=== PATIENT | male | born 2000 | race Hispanic/Latino ===

== ENCOUNTER 2019-09-14 12:58 | Emergency (ER) | payer SELFPAY ==
[2019-09-14 13:11] VITALS: BP 141/71; PULSE 66; RESP 16; TEMP 36.5; O2SAT 100
--- NOTE | 2019-09-14 13:21 | ED.NAVMDI ---
HPI - Nausea/Vomiting/Diarrhea General Chief complaint: Nausea/Vomiting/Diarrhea Stated complaint: vomiting blood Time Seen by Provider: 09/14/19 13:19 Source: patient Mode of arrival: ambulatory Limitations: no limitations History of Present Illness HPI Narrative: A 18 y/o male presents to the ED with c/o N/V/D. Pt states that he has had N/V/D for awhile, but he recently vomited blood on 09/12/19. He notes that he has not vomited since, and he only had the one episode of bloody emesis. Pt adds that he blew his nose and he had blood in the tissue. He reports voice hoarseness that started today, but denies ABD pain. Pt has no other complaints at this time. MD elicited complaint: nausea, vomiting and diarrhea Onset (ago): unknown Associated nausea: Yes Associated abdominal pain: No Location of pain: none Associated symptoms: other (sinus congestion, voice hoarseness, bloody emesis) Related Data Home Medications Medication Instructions Recorded Confirmed No Home Medications 09/14/19 09/14/19 Allergies Allergy/AdvReac Type Severity Reaction Status Date / Time No Known Allergies Allergy Unverified 09/14/19 13:14 Review of Systems Review of Systems: All systems reviewed & are unremarkable except as noted in HPI and below Constitutional: Constitutional: Reports other (Voice hoarseness) ENT: Reports nasal congestion Gastrointestinal: Gastrointestinal: Denies abdominal pain, Reports diarrhea, Reports nausea, Reports vomiting and Reports other (Bloody emesis) PMFSH Past Medical History Medical History (Updated 09/14/19 @ 15:08 by Eduardo Vega MD) Asthma Depression Surgical History Surgical History (Updated 09/14/19 @ 14:24 by Emily Salmeron) No pertinent past surgical history Social History Social History (Updated 09/14/19 @ 14:24 by Emily Salmeron) Smoking status: Never smoker Gender identity (if verbalized by the patient): Male Exam Const: General: healthy appearing, no acute distress and well developed Nutritional Appearance: well nourished Orientation/consciousness: patient oriented x3 (alert) and Other orientation findings (Alert) Limitations: no limitations HENMT: Head: normocephalic and atraumatic Ears: external ears normal General nose exam: No nasal discharge present and no epistaxis Face and sinus: face symmetric Mouth: Yes lip normal, Yes tongue normal and Yes moist mucous membranes Throat: other (No exudate, no erythema) Eyes: Conjunctivae: conjunctivae normal Sclera: sclerae normal EOM: EOMs intact bilaterally Neck: Neck: full ROM, no lymphadenopathy and supple Thyroid: thyroid normal Chest: Chest palpation & inspection: no tenderness Resp: Effort & Inspection: normal respiratory effort Auscultation: clear to auscultation bilaterally, no rales, no rhonchi, no wheezes and other (breath sounds equal) Cardio: Rate: regular rate Rhythm: regular rhythm Heart sounds: no gallops and no murmurs GI: Inspection: non-distended GI Palp: No abdominal tenderness and Yes Soft to palpation Auscultation: other (bowel sounds present) : General: Yes no CVA tenderness Back/Spine/Pelvis: Back: no CVA tenderness Thoracic/Lumbar Spine: thoracic and lumbar spine normal to inspection Skin: General skin exam: normal color, no rashes or lesions noted, no ecchymosis and other (No bleeding) Wounds: no wounds Neuro: General: patient oriented x3 (alert), moves all extremities and no focal motor deficits Cranial nerves: Yes facial symmetry Speech: normal speech Motor exam (neuro): Motor abnormalities not present Extrem: General: normal to inspection, full ROM and no pedal edema Psych: Affect: normal affect Course Course Emergency Course: No more sx for a day and a half, no other unusual bleeding, wnl cbc Vital Signs Vital signs: Vital Signs Temperature 36.5 C 09/14/19 13:11 Pulse Rate 66 09/14/19 13:11 Respiratory Rate 16 09/14/19 13:11 Blood Pressure 141/71 H 09/14/19
[2019-09-14 14:39] LABS: Basophils Absolute Auto 0.1 K/mm3 (0.0-0.1); Basophils Percent Auto 0.7 % (0.2-1.2); Eosinophils Absolute Auto 0.3 K/mm3 (0-0.3); Hemoglobin 15.3 g/dL (14.0-18.0); Immature Granulocyte Absolute 0.02 K/mm3 (0.00-0.031); Immature Granulocyte Percent A 0.3 % (0-0.5); Lymphocytes Absolute Auto 1.67 K/mm3 (0.9-3.2); Lymphocytes Percent Auto 22.1 % (18.3-44.2); Mean Corpuscular Hemoglobin 30.2 pg (26-34); Mean Corpuscular Volume 88.8 fl (80-100); Mean Platelet Volume 10.2 fl (7.4-10.4); Monocytes Absolute Auto 0.5 K/mm3 (0.1-0.6); Monocytes Percent Auto 6.9 % (2.6-8.5); Platelet Count Result 291 k/mm3 (150-375); Red Blood Count 5.07 M/mm3 (4.6-6.20); White Blood Count 7.6 K/mm3 (4.5-10.0)
== END 2019-09-14 15:18 | disposition home or self-care (01) ==
PROVIDERS: Emergency Provider Emergency Medicine
DX: R11.2 Nausea with vomiting, unspecified (principal); J45.909 Unspecified asthma, uncomplicated
CPT/HCPCS: 36415; 85025; 99283

== ENCOUNTER 2021-11-28 13:32 | Emergency (ER) | payer OTHER, SELFPAY ==
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
[2021-11-28 13:36] VITALS: BP 129/81; PULSE 74; RESP 18; TEMP 36.7; O2SAT 99
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
== END 2021-11-28 15:39 | disposition home or self-care (01) ==
PROVIDERS: Emergency Provider Emergency Medicine
DX: S60.211D Contusion of right wrist, subsequent encounter (principal); S49.91XD Unspecified injury of right shoulder and upper arm, subsequent encounter; J45.909 Unspecified asthma, uncomplicated; V49.40XD Driver injured in collision with unspecified motor vehicles in traffic accident, subsequent encounter
CPT/HCPCS: 73030; 73110; 99284